=== PATIENT | female | born 1970 | race Two or more races ===

== ENCOUNTER 2019-08-27 07:24 | Outpatient (CLI) | payer OTHER | END 2019-08-28 08:37 | disposition home or self-care (01) | LOC: SONOGRAMA 07:24 | DX: E04.2 Nontoxic multinodular goiter (principal) ==

== ENCOUNTER 2023-11-21 08:59 | Outpatient (CLI) | payer OTHER | END 2023-11-21 09:08 | disposition home or self-care (01) | LOC: SONOGRAMA 08:59 | PROVIDERS: ATTEND Pathology Anatomic Pathology & Clinical Pathology | DX: D34 Benign neoplasm of thyroid gland (principal); E06.3 Autoimmune thyroiditis ==